=== PATIENT | male | born 1950 | race African-American/Black ===

== ENCOUNTER 2017-10-03 15:00 | Outpatient (RCR) ==
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
--- NOTE | 2017-09-26 08:08 | RS.OPPTDN ---
Subjective Date of Note: 09/25/17 Visit #: 2 Date of Evaluation: 09/16/17 Payer Source: Insurance ([employer], Medicare) Treatment Diagnosis: Upper back pain, Thoracic spine fracture, clavicle fracture Current Subjective/complaints:: Patient reports the most difficult task is reaching behind his back with the R UE. Pain Assessment - Pain Description Pain Description: Tightness Current Pain Intensity: not rated Interventions - Exercise/Activities/Manual Therapy Exercises/Activities: 50 mins. total of passive to AAROM to the R shoulder in all directiond,followed by LE stretching /trunk ROM and scapular postural exercises. Total minutes of Exercise: 50 Manual Therapy: NA Total minutes of Manual Therapy: 0 HOME EXERCISE PROGRAM: cervical rotation, pec stretch (corner stretch), HS stretch, and scapular retraction - Charges Timed Code Treatment Minutes: 50 Total Treatment Time: 50 Procedures billed for this date of service:: ex 3 Assessment: Patient has moderate tightness in the R shoulder.He tolerates stretching for the back well,has some report of tightness in the midback today.He has moderate hamstring tightness,but responds to the stretches well.He is attentive to recommendations of the therapy staff. Patient Education: Education of diagnosis, Body/Joint mechanics, Home Exercise Program, Home Safety, Activity Modification, Education of Plan of Care Patient demonstrates compliance with HEP?: Yes Short Term Goals Goal #1: Right shoulder IR and ER WFL's without discomfort. Goal to be met by: 10/01/17 Progress towards Goal:: Progressing Goal #2: Right shoulder strength grossly 4+/5 throughout. Goal to be met by: 10/01/17 Goal #3: Cervical rotation to the left WFL's. Goal to be met by: 10/01/17 Goal #4: SLR bilaterally to 50 degrees. Goal to be met by: 10/01/17 Planer Tailer Goals Goal #1: Pt knows HEP and to continue ex's to maintain functional level at D/C. Goal to be met by: 11/06/17 Progress towards goal: Progressing Goal #2: Score on UE functional scale improved to 0 impairment. Goal to be met by: 11/06/17 Goal #3: Pt to perform all ADL's w/o difficulty or pain. Goal to be met by: 11/06/17 Goal #4: Pt able to return to his usual recreational activities w/o limitation. Goal to be met by: 11/06/17 Plan PLAN OF CARE EXPIRES ON:: 11/06/17 ORDER # VISITS AND/OR THROUGH DATE: 11/06/17 PLAN: Cont PT to increase ROM in the R shoulder and cervical spine, increasestrength .
--- NOTE | 2017-09-30 16:26 | RS.OPPTDN ---
Subjective Date of Note: 09/30/17 Visit #: 3 Date of Evaluation: 09/16/17 Payer Source: Insurance ([address], Medicare) Treatment Diagnosis: Upper back pain, Thoracic spine fracture, clavicle fracture Current Subjective/complaints:: Patient reprts feeling more flexible after last PT session,no negative effects. Pain Assessment - Pain Description Current Pain Intensity: 0 at rest Other Comments regarding Pain:: muscle soreness and tightness when present ,as opposed to sharp pain Interventions - Exercise/Activities/Manual Therapy Exercises/Activities: 60 mins. total of passive to AAROM to the R shoulder in all directions,wand exercises for overhead stretch,IR/ER of R shoulder at different angles,Grade II shoulder mobs.followed by LE stretching /trunk ROM and scapular postural exercises.Seated postural pullbacks ,3/15 reps. with green theraband.HEP review and use of ice or heat if necessary.Supine stretching of SKTC,DKTC,hamstring stretches,LTR. Total minutes of Exercise: 60 Manual Therapy: NA Total minutes of Manual Therapy: 0 HOME EXERCISE PROGRAM: cervical rotation, pec stretch (corner stretch), HS stretch, and scapular retraction - Charges Timed Code Treatment Minutes: 60 Total Treatment Time: 60 Procedures billed for this date of service:: ex 4 Assessment: Patient has improved IR /extension for reaching behind his back.He reports fatigue with scapular exercises,but no sharp pain.He has good hamstring extensibility,and we discussed to do SKTC to benefit the lumbar and thoracic region,avoiding any stretch that causes sharp pain. Patient Education: Education of diagnosis, Body/Joint mechanics, Home Exercise Program, Home Safety, Activity Modification, Education of Plan of Care Patient demonstrates compliance with HEP?: Yes Short Term Goals Goal #1: Right shoulder IR and ER WFL's without discomfort. Goal to be met by: 10/01/17 Progress towards Goal:: Progressing Goal #2: Right shoulder strength grossly 4+/5 throughout. Goal to be met by: 10/01/17 Progress towards Goal:: Progressing Goal #3: Cervical rotation to the left WFL's. Goal to be met by: 10/01/17 (N/A today) Goal #4: SLR bilaterally to 50 degrees. Goal to be met by: 10/01/17 Progress towards Goal:: Progressing Senior Care Manager Goals Goal #1: Pt knows HEP and to continue ex's to maintain functional level at D/C. Goal to be met by: 11/06/17 Progress towards goal: Progressing Goal #2: Score on UE functional scale improved to 0 impairment. Goal to be met by: 11/06/17 Goal #3: Pt to perform all ADL's w/o difficulty or pain. Goal to be met by: 11/06/17 Progress towards goal: Progressing Goal #4: Pt able to return to his usual recreational activities w/o limitation. Goal to be met by: 11/06/17 Plan PLAN OF CARE EXPIRES ON:: 11/06/17 ORDER # VISITS AND/OR THROUGH DATE: 11/06/17 PLAN: Continue PT to return patient to PLOF,achieve maximum ROM in the R UE.
--- NOTE | 2017-10-03 16:26 | RS.OPPTDN ---
Subjective Date of Note: 10/03/17 Visit #: 4 Date of Evaluation: 09/16/17 Payer Source: Insurance ([employer], Medicare) Treatment Diagnosis: Upper back pain, Thoracic spine fracture, clavicle fracture Current Subjective/complaints:: Patient reports no increased soreness or symptoms after last PT session.He does report increased aching in the mid back when up with out the brace on. Pain Assessment - Pain Description Pain Location: Mid - back along T7 level. Pain Description: Dull, Aching Current Pain Intensity: not rated Interventions - Exercise/Activities/Manual Therapy Exercises/Activities: 50 mins. total of passive to AAROM to the R shoulder in all directions,wand exercises for overhead stretch,IR/ER of R shoulder at different angles,Grade II shoulder mobs.followed by LE stretching /trunk ROM and scapular postural exercises.Seated postural pullbacks ,3/15 reps. with black theraband.HEP review and use of ice or heat if necessary.Supine stretching of cervical roation to L and R,passive shoulder depression ti stretch upper traps.Corner stetches with UE's at different heights. Total minutes of Exercise: 50 Manual Therapy: NA Total minutes of Manual Therapy: 0 HOME EXERCISE PROGRAM: cervical rotation, pec stretch (corner stretch), HS stretch, and scapular retraction - Charges Timed Code Treatment Minutes: 50 Total Treatment Time: 50 Procedures billed for this date of service:: ex 3 Assessment: Patient has improved ROM in both shoulders passively,with R shoulder tightness greater than L ,but both are functional.His cervical rotation to the L is tighter than to the R ,but these motions are also functional without elevating pain.He has no pain in the R clavicle with IR/ER of the shoulder.He is attentive and compliant to treatment recommendations. Short Term Goals Goal #1: Right shoulder IR and ER WFL's without discomfort. Goal to be met by: 10/01/17 Progress towards Goal:: Partially Met Goal #2: Right shoulder strength grossly 4+/5 throughout. Goal to be met by: 10/01/17 Progress towards Goal:: Progressing Goal #3: Cervical rotation to the left WFL's. Goal to be met by: 10/01/17 Progress towards Goal:: Progressing Goal #4: SLR bilaterally to 50 degrees. Goal to be met by: 10/01/17 Progress towards Goal:: Progressing Core Placer Goals Goal #1: Pt knows HEP and to continue ex's to maintain functional level at D/C. Goal to be met by: 11/06/17 Progress towards goal: Progressing Goal #2: Score on UE functional scale improved to 0 impairment. Goal to be met by: 11/06/17 Goal #3: Pt to perform all ADL's w/o difficulty or pain. Goal to be met by: 11/06/17 Progress towards goal: Progressing Goal #4: Pt able to return to his usual recreational activities w/o limitation. Goal to be met by: 11/06/17 Plan PLAN OF CARE EXPIRES ON:: 11/06/17 ORDER # VISITS AND/OR THROUGH DATE: 11/06/17 PLAN: Cont . PT to increase R UE ROM without pain ,strengthen trunk extensors to tolerate ADL' swithout wearing back brace.
== END 2017-10-05 ==
PROVIDERS: ATTEND Neurological Surgery
DX: S22.009A Unspecified fracture of unspecified thoracic vertebra, initial encounter for closed fracture (principal)

== ENCOUNTER 2017-10-27 10:37 | Outpatient (CLI) ==
--- NOTE | 2017-10-27 11:32 | DI ---
EXAM: CHEST FRONTAL AND LATERAL VIEWS HISTORY: Atherosclerotic heart disease. COMPARISON: None FINDINGS: Heart size and mediastinal contour within normal limits. No clearly visible atheroscler otic calcifications are identified radiographically. No acute infiltrates. Normal vascularity with n o pleural fluid or pneumothorax. The bony thorax has no acute finding. IMPRESSION: No acute process.
== END 2017-10-27 10:38 | disposition home or self-care (01) ==
LOC: CAR 10:37
PROVIDERS: ATTEND Urology
DX: C61 Malignant neoplasm of prostate (principal); R53.83 Other fatigue; I25.10 Atherosclerotic heart disease of native coronary artery without angina pectoris; Z01.812 Encounter for preprocedural laboratory examination
CPT/HCPCS: 36415; 80053; 80074; 81001; 85025; 85610; 85730; 87086; 93005; 93010

== ENCOUNTER → 2017-11-05 | Outpatient (RCR) | payer OTHER ==
--- NOTE | 2017-10-07 16:18 | RS.OPPTDN ---
Subjective Date of Note: 10/07/17 Visit #: 6 Date of Evaluation: 09/16/17 Payer Source: Insurance ([employer], Medicare) Treatment Diagnosis: Upper back pain, Thoracic spine fracture, clavicle fracture Current Subjective/complaints:: No c/o,feels the therapy is helping. Pain Assessment - Pain Description Current Pain Intensity: 0 at rest Interventions - Exercise/Activities/Manual Therapy Exercises/Activities: 50 mins. total of AROM ,3/15 each of postural pullbacks with 10 #,then punching motion .10 # for R shoulder ER/IR with the UE in neutral postion (elbow at his side),3/10 each.Seated wand exercises of overhead flexion , horizontal abd /adduction.Ended session in supine for hamstring stretches ,and lower trunk rotation in hooklying position . Total minutes of Exercise: 50 Manual Therapy: NA Total minutes of Manual Therapy: 0 HOME EXERCISE PROGRAM: cervical rotation, pec stretch (corner stretch), HS stretch, and scapular retraction - Charges Timed Code Treatment Minutes: 50 Total Treatment Time: 60 Procedures billed for this date of service:: ex 3 Short Term Goals Goal #1: Right shoulder IR and ER WFL's without discomfort. Goal to be met by: 10/01/17 Progress towards Goal:: Partially Met Goal #2: Right shoulder strength grossly 4+/5 throughout. Goal to be met by: 10/01/17 Progress towards Goal:: Progressing Goal #3: Cervical rotation to the left WFL's. Goal to be met by: 10/01/17 Progress towards Goal:: Partially Met Goal #4: SLR bilaterally to 50 degrees. Goal to be met by: 10/01/17 Progress towards Goal:: Progressing Rock Mason Apprentice Goals Goal #1: Pt knows HEP and to continue ex's to maintain functional level at D/C. Goal to be met by: 11/06/17 Progress towards goal: Progressing Goal #2: Score on UE functional scale improved to 0 impairment. Goal to be met by: 11/06/17 Goal #3: Pt to perform all ADL's w/o difficulty or pain. Goal to be met by: 11/06/17 Progress towards goal: Progressing Goal #4: Pt able to return to his usual recreational activities w/o limitation. Goal to be met by: 11/06/17 Plan PLAN OF CARE EXPIRES ON:: 11/06/17 ORDER # VISITS AND/OR THROUGH DATE: 11/06/17 PLAN: Continue skilled PT to return patient to PLOF.
--- NOTE | 2017-10-15 16:23 | RS.OPPTDN ---
Subjective Date of Note: 10/15/17 Visit #: 6 Date of Evaluation: 09/16/17 Payer Source: Insurance ([employer], Medicare) Treatment Diagnosis: Upper back pain, Thoracic spine fracture, clavicle fracture Current Subjective/complaints:: Patient says he will be setting up surgery for prostate removal in a few weeks and this will become his priority. Reports he occasionally has "pokes" to his upper back if he does not have his brace on and it will remind him to correct his posture. He c/o occasional bilateral feet burning he feels is related to T7 injury. He denies having trouble sleeping or real pain to allow medication. He reports performing HEP. Pain Assessment - Pain Description Pain Location: Intermittent "hot pokes" to the upper back especially if brace is not on. Bilateral feet burning, nerve pain. Interventions - Exercise/Activities/Manual Therapy Exercises/Activities: 35 mins. total of AROM ,3/15 each of postural pullbacks with 10 # then alternating sides x 10,then punching motion 2x10. Shoulder ER/ IR with the UE in neutral postion (elbow at his side),3/10 each.Seated 3#wand exercises of overhead flexion , horizontal abd /adduction.Ended session in supine for hamstring and SKTC stretches ,and lower trunk rotation in hooklying position . Manual Therapy: NA HOME EXERCISE PROGRAM: cervical rotation, pec stretch (corner stretch), HS stretch, and scapular retraction - Charges Timed Code Treatment Minutes: 35 Total Treatment Time: 35 Procedures billed for this date of service:: ex2 Assessment: Patient performs all therex well and without c/o's. No soreness with R shoulder with multigym except general fatigue. He demo good HS flexibility bilaterally. Patient will be focusing on upcoming surgical procedure. Patient Education: Education of diagnosis, Home Exercise Program Patient demonstrates compliance with HEP?: Yes Short Term Goals Goal #1: Right shoulder IR and ER WFL's without discomfort. Goal to be met by: 10/01/17 Progress towards Goal:: Partially Met Goal #2: Right shoulder strength grossly 4+/5 throughout. Goal to be met by: 10/01/17 Progress towards Goal:: Progressing Goal #3: Cervical rotation to the left WFL's. Goal to be met by: 10/01/17 Progress towards Goal:: Partially Met Goal #4: SLR bilaterally to 50 degrees. Goal to be met by: 10/01/17 Progress towards Goal:: Progressing Nursing Home Goals Goal #1: Pt knows HEP and to continue ex's to maintain functional level at D/C. Goal to be met by: 11/06/17 Progress towards goal: Progressing Goal #2: Score on UE functional scale improved to 0 impairment. Goal to be met by: 11/06/17 Goal #3: Pt to perform all ADL's w/o difficulty or pain. Goal to be met by: 11/06/17 Progress towards goal: Progressing Goal #4: Pt able to return to his usual recreational activities w/o limitation. Goal to be met by: 11/06/17 Plan PLAN OF CARE EXPIRES ON:: 11/06/17 ORDER # VISITS AND/OR THROUGH DATE: 11/06/17 PLAN: Continue to improve strength to the UEs, upper back, and scapular stability
--- NOTE | 2017-10-30 08:49 | RS.OPPTDN ---
Subjective Date of Note: 10/29/17 Visit #: 7 Date of Evaluation: 09/16/17 Payer Source: Insurance ([employer] [facility], Medicare) Treatment Diagnosis: Upper back pain, Thoracic spine fracture, clavicle fracture Current Subjective/complaints:: Patient denies pain. He says he just wants to strengthen the upper/mid back and allow this area to heal before he has prostate surgery next month. He says that he can tell his legs are more flexible due to stretching. Interventions - Exercise/Activities/Manual Therapy Exercises/Activities: 37 mins. total of AROM ,3/15 each of postural pullbacks increased to 20 # then alternating sides 3 x 10 at 10#,then punching motion 3x10. Shoulder ER/IR with the UE in neutral postion (elbow at his side),3/10 each. Pull downs using blue tband 3x10. Seated increased to 4#wand exercises of overhead flexion , horizontal abd /adduction.Ended session in supine for hamstring and SKTC stretches ,and lower trunk rotation in hooklying position x 3 ea. Manual Therapy: NA HOME EXERCISE PROGRAM: cervical rotation, pec stretch (corner stretch), HS stretch, and scapular retraction - Charges Timed Code Treatment Minutes: 37 Total Treatment Time: 37 Procedures billed for this date of service:: ex2 Assessment: Patient demo improved seema to progressive thoracic strengthening and hamstring inflexibility is improving as well. Patient's goal is to get stronger before impending surgery next month. Patient Education: Education of diagnosis, Body/Joint mechanics, Home Exercise Program Patient demonstrates compliance with HEP?: Yes Short Term Goals Goal #1: Right shoulder IR and ER WFL's without discomfort. Goal to be met by: 10/01/17 Progress towards Goal:: Met Goal #2: Right shoulder strength grossly 4+/5 throughout. Goal to be met by: 10/01/17 Progress towards Goal:: Met Goal #3: Cervical rotation to the left WFL's. Goal to be met by: 10/01/17 Progress towards Goal:: Partially Met Goal #4: SLR bilaterally to 50 degrees. Goal to be met by: 10/01/17 Progress towards Goal:: Progressing Inspector And Sorter Goals Goal #1: Pt knows HEP and to continue ex's to maintain functional level at D/C. Goal to be met by: 11/06/17 Progress towards goal: Progressing Goal #2: Score on UE functional scale improved to 0 impairment. Goal to be met by: 11/06/17 Goal #3: Pt to perform all ADL's w/o difficulty or pain. Goal to be met by: 11/06/17 Progress towards goal: Progressing Goal #4: Pt able to return to his usual recreational activities w/o limitation. Goal to be met by: 11/06/17 Plan PLAN OF CARE EXPIRES ON:: 11/06/17 ORDER # VISITS AND/OR THROUGH DATE: 11/06/17 PLAN: Patient to continue for upper body strengthening and flexibility for the low back.
--- NOTE | 2017-10-31 16:33 | RS.OPPTDN ---
Subjective Date of Note: 10/31/17 Visit #: 8 Date of Evaluation: 09/16/17 Payer Source: Insurance ([employer], Medicare) Treatment Diagnosis: Upper back pain, Thoracic spine fracture, clavicle fracture Current Subjective/complaints:: Patient reports the burning in his feet is better. Reports flexibility is also improving and can tell his posture is better. Interventions - Exercise/Activities/Manual Therapy Exercises/Activities: 36 mins. total. Begins with shelf reaching trunk to overhead with 3# wand, 6# and 9# 3x10 each. Forward punches with 10# each UE 3x10 ea. Black tband pull downs 3x10, Single pull backs with 20# 3x10, Treadmill @ 1.4 mph x 3 mins. Ended with SKTC, HS, Piriformis, and lower trunk rotation stretch x 4 bilaterally. Manual Therapy: NA HOME EXERCISE PROGRAM: cervical rotation, pec stretch (corner stretch), HS stretch, and scapular retraction - Charges Timed Code Treatment Minutes: 36 Total Treatment Time: 36 Procedures billed for this date of service:: ex2 Assessment: Patient's posture is improving, strength increasing to the bilateral UE's/trunk, Decreased burning to bilateral feet. Improved R HS flexibility as well. Patient Education: Education of diagnosis, Body/Joint mechanics, Home Exercise Program Patient demonstrates compliance with HEP?: Yes Short Term Goals Goal #1: Right shoulder IR and ER WFL's without discomfort. Goal to be met by: 10/01/17 Progress towards Goal:: Met Goal #2: Right shoulder strength grossly 4+/5 throughout. Goal to be met by: 10/01/17 Progress towards Goal:: Met Goal #3: Cervical rotation to the left WFL's. Goal to be met by: 10/01/17 Progress towards Goal:: Partially Met Goal #4: SLR bilaterally to 50 degrees. Goal to be met by: 10/01/17 Progress towards Goal:: Progressing Placement Specialist Goals Goal #1: Pt knows HEP and to continue ex's to maintain functional level at D/C. Goal to be met by: 11/06/17 Progress towards goal: Progressing Goal #2: Score on UE functional scale improved to 0 impairment. Goal to be met by: 11/06/17 Comments: Assess next week Goal #3: Pt to perform all ADL's w/o difficulty or pain. Goal to be met by: 11/06/17 Progress towards goal: Progressing Goal #4: Pt able to return to his usual recreational activities w/o limitation. Goal to be met by: 11/06/17 Plan PLAN OF CARE EXPIRES ON:: 11/06/17 ORDER # VISITS AND/OR THROUGH DATE: 11/06/17 PLAN: Patient to attend next week as order will be complete.
--- NOTE | 2017-11-03 16:34 | RS.OPPTDN ---
Subjective Date of Note: 11/03/17 Visit #: 9 Date of Evaluation: 09/16/17 Payer Source: Insurance ([employer], Medicare) Treatment Diagnosis: Upper back pain, Thoracic spine fracture, clavicle fracture Current Subjective/complaints:: Patient says he can bring his R arm behind his back better now and fiance notices his posture is improving. Pain Assessment - Pain Description Pain Location: no c/o's Interventions - Exercise/Activities/Manual Therapy Exercises/Activities: 36 mins. total. Begins with shelf reaching trunk to overhead with 9# wand 4x10 each. Forward punches with 10# each UE 3x10 ea. Black tband pull downs 3x10, Single pull backs with 20# 3x10, Treadmill @ 1.4 mph x 5 mins. Ended with SKTC, HS, Piriformis, and lower trunk rotation stretch x 4 bilaterally. Leg presses 40# 3x10 reps. Manual Therapy: NA HOME EXERCISE PROGRAM: cervical rotation, pec stretch (corner stretch), HS stretch, and scapular retraction - Charges Timed Code Treatment Minutes: 36 Total Treatment Time: 36 Procedures billed for this date of service:: ex2 Assessment: Patient demo improvement with posture, UE and LE flexibility. He is able to progress with all therex in the dept. Patient Education: Body/Joint mechanics, Home Exercise Program Patient demonstrates compliance with HEP?: Yes Short Term Goals Goal #1: Right shoulder IR and ER WFL's without discomfort. Goal to be met by: 10/01/17 Progress towards Goal:: Met Goal #2: Right shoulder strength grossly 4+/5 throughout. Goal to be met by: 10/01/17 Progress towards Goal:: Met Goal #3: Cervical rotation to the left WFL's. Goal to be met by: 10/01/17 Progress towards Goal:: Partially Met Goal #4: SLR bilaterally to 50 degrees. Goal to be met by: 10/01/17 Progress towards Goal:: Progressing Casting Coordinator Goals Goal #1: Pt knows HEP and to continue ex's to maintain functional level at D/C. Goal to be met by: 11/06/17 Progress towards goal: Progressing Goal #2: Score on UE functional scale improved to 0 impairment. Goal to be met by: 11/06/17 Goal #3: Pt to perform all ADL's w/o difficulty or pain. Goal to be met by: 11/06/17 Progress towards goal: Progressing Goal #4: Pt able to return to his usual recreational activities w/o limitation. Goal to be met by: 11/06/17 Plan PLAN OF CARE EXPIRES ON:: 11/06/17 ORDER # VISITS AND/OR THROUGH DATE: 11/06/17 PLAN: Patient to continue x 1 more session per order/POC
--- NOTE | 2017-11-05 16:38 | RS.OPPTDN ---
Subjective Date of Note: 11/05/17 Visit #: 10 Date of Evaluation: 09/16/17 Payer Source: Insurance ([employer], Medicare) Treatment Diagnosis: Upper back pain, Thoracic spine fracture, clavicle fracture Current Subjective/complaints:: Patient says he has done better with ascending/ descending bleachers at ball games. He also says he forgot his brace today and can tell his posture is much better with it. He reports watching school basketball games have been easier to seema. Interventions - Exercise/Activities/Manual Therapy Exercises/Activities: 36 mins. total. Begins with forward punches with 10# each UE 3x15 ea. Black tband pull downs 3x15, Single pull backs with 20# 3x15, Horizontal abd with black tband 3x10, IR pulleys 10# 3x15. Shelf reach with 9# 3x15 from trunk to overhead, Treadmill @ 1.4 mph x 6 mins. Ended with SKTC, HS , Piriformis, and lower trunk rotation stretch x 4 bilaterally. Leg presses 30 # 2x15, 40# 3x15 reps. Patient completes 10th visit reassessment. Manual Therapy: NA HOME EXERCISE PROGRAM: cervical rotation, pec stretch (corner stretch), HS stretch, and scapular retraction - Objective Findings Observations,measurements,etc.: No change documented on UE Functional Index. Original score is 54/80, which leaves patient in CJ category - Charges Timed Code Treatment Minutes: 36 Total Treatment Time: 36 Procedures billed for this date of service:: ex2 Assessment: Patient does verbalize improvement with LE flexibility, seema to sitting for prolonged period at ball games and postural improvement. He maintains little to no pain (R clavicular region). He has progressed with therex in the department well. No change indicated on Functional Index. HEP was progressed and black tband was given to patient for home use. Patient Education: Education of diagnosis, Body/Joint mechanics, Home Exercise Program, Home Safety, Education of Plan of Care Patient demonstrates compliance with HEP?: Yes Short Term Goals Goal #1: Right shoulder IR and ER WFL's without discomfort. Goal to be met by: 10/01/17 Progress towards Goal:: Met Goal #2: Right shoulder strength grossly 4+/5 throughout. Goal to be met by: 10/01/17 Progress towards Goal:: Met Goal #3: Cervical rotation to the left WFL's. Goal to be met by: 10/01/17 Progress towards Goal:: Met Goal #4: SLR bilaterally to 50 degrees. Goal to be met by: 10/01/17 Progress towards Goal:: Met Comments:: Assessed today Alf Goals Goal #1: Pt knows HEP and to continue ex's to maintain functional level at D/C. Goal to be met by: 11/06/17 Progress towards goal: Met Comments: Progressed HEP today and issued black tband Goal #2: Score on UE functional scale improved to 0 impairment. Goal to be met by: 11/06/17 Progress towards goal: No Change Goal #3: Pt to perform all ADL's w/o difficulty or pain. Goal to be met by: 11/06/17 Progress towards goal: Progressing Goal #4: Pt able to return to his usual recreational activities w/o limitation. Goal to be met by: 11/06/17 Progress towards goal: Progressing Plan PLAN OF CARE EXPIRES ON:: 11/06/17 ORDER # VISITS AND/OR THROUGH DATE: 11/06/17 PLAN: Patient to continue with HEP. He will be having a surgical procedure later in November and will be recooperating then.
== END ==
PROVIDERS: ATTEND Neurological Surgery
DX: S22.009A Unspecified fracture of unspecified thoracic vertebra, initial encounter for closed fracture (principal)